=== PATIENT | female | born 1975 | race Caucasian/White ===

== ENCOUNTER 2019-01-24 08:51 | Emergency (ER) | payer OTHER ==
[2019-01-24] MEDS ORDERED: KETOROLAC 15 MG/1 ML SDV IVP ONE (09:55)
[2019-01-24] MEDS ORDERED: fentaNYL 100 MCG/2 ML INJ IVP ONE (09:55)
[2019-01-24 10:09] LABS: PLATELET COUNT 218 10^3/uL (150-400)
--- NOTE | 2019-01-24 10:22 | EDPHY ---
General - History Smoking Status: Never smoked Time Seen by Provider: 01/24/19 09:14 Narrative: CLINICAL IMPRESSION: Bilateral pelvic pain, low back pain ASSESSMENT/PLAN: 43-year-old otherwise healthy female presents to the emergency department with atraumatic bilateral hip pain that radiates to bilateral pelvic region and low back x5 days. No coinciding fever, chills, saddle anesthesia, urinary retention , bowel or bladder incontinence, lower extremity paresthesias. No history of KEHINDE, acupuncture, or spinal procedure. No UTI symptoms and urine is not suggestive infection. negative. She is monogamous with her , reports no STD risk, and has no abnormal symptoms. Pelvic ultrasound including appendix shows a normal appearing appendix, a dominant left ovarian follicle measuring 14 mm, and a mild amount of free fluid in the pelvic cul-de- sac suggestive of recent ruptured ovarian cyst. Lab work reassuring with no leukocytosis, renal insufficiency, electrolyte imbalance, or metabolic disturbance. Normal sed rate. No evidence of trauma and lumbar x-rays were deferred. Patient was seen and examined by Dr. Lazaro who felt patient may benefit from CT imaging and IV fluids. CT was read by Radiology showing no acute abnormality aside from trace fluid in the pelvic cul-de-sac. Patient's pain dramatically improved with a single dose of fentanyl and Toradol. Patient does have a history of chronic pelvic floor spasms and tightness as well as frequent UTIs. At this point I do not feel she would benefit from additional workup or imaging. Case discussed extensively with Dr. Lazaro. Pain meds prescribed to use for breakthrough pain. We have encouraged primary care follow -up, gynecology evaluation, warning signs return to ED sooner outlined in person and discharge papers. Patient is comfortable with this plan. DIFFERENTIAL DX: Abdominal pain includes but not limited to urinary tract infection, pyelonephritis, infection, ectopic , salpingitis, TOA, ovarian torsion, ovarian cyst, endometriosis, uterine fibroids, acute appendicitis, acute diverticulitis, small-bowel obstruction, constipation ED PROCEDURES: See lab and/or imaging results below ED COURSE: 10:00 a.m.: Patient seen and assessed by myself. Vital signs stable. Generalized abdominal and low back pain. Plan for IV, analgesics, labs, and pelvic ultrasound. 12:20 P.M.: Case discussed with Dr. Lazaro. Ultrasound results read by Dr. Kemp, a dominant left follicle measures 16 mm noted, endometrium is normal appearing, complex fluid in the pelvic cul-de-sac, normal appearing appendix at 3.9 x 4.1 mm. Patient to be assessed by Dr. Lzaaro as well. On reassessment patient reports her pain is much improved she ambulated to the restroom and now only had mild low back pain. 2:00 p.m.: CT results discussed with Anna. Small amount of free fluid in the lower pelvis consistent with possible recent ruptured ovarian cyst, otherwise no acute findings identified. Results discussed with the patient who continues to feel better after her single dose of fentanyl and Toradol. CHIEF COMPLAINT: Pelvic and hip pain and low back pain. HPI: 43-year-old female with past medical history of chronic urinary tract infection and pelvic floor pain, presents to the emergency department with 5 days of generalized bilateral hip and pelvic pain, low back pain, and intermittent radiating pain down the anterior aspect of both legs. Patient reports she had no new exercise routine, trauma or injury. She states her pain feels very different than her known UTI and pelvic floor tightness. She has seen specialists for both of these conditions and has had cystoscopy and pelvic floor treatments. Over the last 2 days, the pain has radiated into the back and has made it very difficult for her to sleep. She also reports a burning sensation down the anterior aspect of both legs. No back injury, KEHINDE, acupuncture or spinal procedures. No reported fever or chills. No nausea, vomiting, diarrhea or constipation. She has no history of chronic back pain or injury. She has tried ibuprofen without significant improvement. No reported bowel or bladder incontinence, urinary retention, saddle anesthesia, gait intolerance, footdrop, or lower extremity paresthesias. She has not seen a primary care doctor for this. PAST MEDICAL HISTORY: Chronic urinary tract infections, pelvic floor tightness, hypertension See nurse/triage notes for additional history if applicable Pertinent Past Surgical History: Prior C-sections Family History: None reported Social History: Nonsmoker, , monogamous, otherwise healthy REVIEW OF SYSTEMS: All other systems negative Constitutional: No fever, no chills, appetite change. Cardiovascular: No chest pain, no palpitations. Respiratory: No cough, no shortness of breath. Gastrointestinal: Positive for abdominal pain, no vomiting, diarrhea. Genitourinary: No hematuria, dysuria, positive for flank pain, positive for pelvic pain Musculoskeletal: Positive for back pain, joint swelling, joint pain, myalgias. Skin: No rashes, color change. Neurological: No headache, dizziness, weakness. PHYSICAL EXAM: General Appearance: Alert, oriented, appropriate, cooperative, sitting comfortably on the bed but appears uncomfortable when straightening the legs, NAD, well hydrated, non-toxic appearing, VSS, no hypoxia. Neck: Supple, nontender, no lymphadenopathy, no midline pain, FROM, no meningismus, negative Kernig and Brudzinski sign. Respiratory: There are no retractions, lungs are clear to auscultation. Cardiac: Regular rate and rhythm, no murmurs or gallops. Gastrointestinal: Abdomen is soft, generalized lower pelvic discomfort to palpation, bowel sounds normal, no masses/hernia, no rigidity, guarding or focal peritoneal findings. Neurological: Alert and oriented x 3, CN 2-12 grossly intact, no limb ataxia, DTR's intact, normal sensation and strength, no reported urinary incontinence, retention, saddle anesthesia Skin: Warm, dry, no rashes, no nodules on palpation. Musculoskeletal: Extremities are symmetrical, full range of motion, no tenderness, deformity, swelling, or erythema. Reproducible pain to palpation of bilateral paravertebral muscles of the lumbar region. No midline back pain. Psychiatric: Patient is oriented X 3, there is no agitation. MEDICAL DECISION MAKING: Secondary supervising physician at time of evaluation was Dr. Lazaro . Diagnosis: Pelvic pain, low back pain. New, requires workup Summary: See Assessment and Plan for summary of ED visit Clinical lab tests: ordered / reviewed. Independent visualization of images, tracing, or specimens: Yes. Decision to obtain medical records or history from someone other than the patient: None Review / Summarize previous medical records: None available Discussed patient with another provider: Dr. Lazaro who also saw and examined the patient Patient Progress: Improved, Stable for discharge. (Navi Sullivan) Medical Decision Making: I personally examined and evaluated this patient. (Christiano Lazaro) - Objective Vital Signs: Initial Vital Signs Temperature (C) 37 C 01/24/19 08:55 Heart Rate 100 01/24/19 08:55 Respiratory Rate 16 01/24/19 08:55 Blood Pressure 122/79 H 01/24/19 08:55 O2 Sat (%) 97 01/24/19 08:55 O2 Delivery Mode Room Air Allergies/Adverse Reactions: acetaminophen [From Percocet] Allergy (Verified 01/24/19 08:55) oxycodone [From Percocet] Allergy (Verified 01/24/19 08:55) Home Medications: Medication Instructions Recorded Hydrocodone/APAP 5/325 [[place] 1 - 2 tab PO Q4H PRN #10 tab 01/24/19 5/325 (*)] Lisinopril 01/24/19 Laboratory Results: Laboratory Results 01/24/19 10:00 01/24/19 10:00 Medications Given: Discontinued Medications Fentanyl (Sublimaze) 50 mcg IVP EDNOW ONE Stop: 01/24/19 09:56 Last Admin: 01/24/19 10:05 Dose: 50 mcg Sodium Chloride (Ns) 1,000 mls @ 0 mls/hr IV EDNOW ONE; Wide Open PRN Reason: Protocol Stop: 01/24/19 12:45 Last Admin: 01/24/19 13:06 Dose: 1,000 mls Ketorolac Tromethamine (Toradol) 15 mg IVP EDNOW ONE Stop: 01/24/19 09:56 Last Admin: 01/24/19 10:05 Dose: 15 mg Departure - Departure Disposition: Home, Routine, Self-Care Clinical Impression: Pelvic pain in female Condition: Good Instructions: Pelvic Pain (ED) Additional Instructions: DISCHARGE INSTRUCTIONS FROM YOUR DOCTOR Thank you for visiting our emergency department today. You were treated by a physician automotive service assistant today and your case was reviewed with our ED Attending physician. Please keep in mind that discharge from the emergency department does not mean that there is nothing wrong - it simply means that we have not identified an emergency condition that requires further evaluation or treatment in the hospital. You should always plan to follow up with primary care for re- evaluation of your condition in the next 2-3 days. If you have been referred to a specialist, please call as soon as possible (today or tomorrow) to schedule your follow up appointment at the appropriate time. DIAGNOSTIC EVALUATION IN THE EMERGENCY DEPARTMENT TODAY INCLUDED URINE STUDIES, LAB WORK, PELVIC ULTRASOUND, AND CT SCAN. YOU HAVE NO EVIDENCE OF BLADDER INFECTION OR BLOOD IN THE URINE AND YOU ARE NOT . LAB WORK IS REASSURING, NO ELEVATION IN INFECTION FIGHTING COUNT, ELECTROLYTES ARE NORMAL AND KIDNEY FUNCTIONS ARE REASSURING. PELVIC ULTRASOUND REVEALED A NORMAL APPEARING APPENDIX, A 14 MM LEFT DOMINANT FOLLICLE ON THE OVARY, AND A SMALL AMOUNT OF TRACE FREE FLUID INDICATING A POSSIBLE RECENT RUPTURED CYST. CT SCAN SHOWED NO ACUTE ABNORMALITY. WE GAVE YOU A PRESCRIPTION FOR PAIN MEDICATION TO USE IF NEEDED. PLEASE FOLLOW-UP WITH PRIMARY CARE. CONSIDER USING AN ANTI- INFLAMMATORY. RETURN TO THE EMERGENCY DEPARTMENT FOR WORSENING OR SEVERE PAIN, SEVERE BACK PAIN, BOWEL OR BLADDER INCONTINENCE, SADDLE ANESTHESIA, URINARY RETENTION, FEVER OR CHILLS, OR ANY OTHER CONCERN. People present with illnesses and injuries in different ways, and it is always possible that we have missed something. You may always return for re-evaluation if symptoms worsen or if they are not improving or if you develop new/different symptoms. Again, thank you for choosing our emergency department. We hope that you feel better. Referrals: Divina Jensen MD [Primary Care Provider] - 1-2 days without fail Prescriptions: Hydrocodone/APAP 5/325 [[place] 5/325 (*)] 1 - 2 tab PO Q4H PRN #10 tab PRN Reason: Pain, Moderate
[2019-01-24] MEDS ORDERED: NS 1,000 ML IV ONE (12:44)
[2019-01-24] MEDS ORDERED: IOPAMIDOL (ISOVUE-300) 100 ML BTL ONE (12:50)
[2019-01-24 14:37] VITALS: BP 106/94
== END 2019-01-24 14:36 | disposition home or self-care (01) ==
DX: R10.2 Pelvic and perineal pain (principal); M54.5 Low back pain; Z87.440 Personal history of urinary (tract) infections; I10 Essential (primary) hypertension
CPT/HCPCS: 96374; J1885; J3010; Q9967